=== PATIENT | male | born 1985 | race Caucasian/White ===

== ENCOUNTER 2018-03-29 13:18 | Emergency (ER) | payer OTHER, MEDICAID, SELFPAY ==
[2018-03-29 13:18] VITALS: BP 126/78; PULSE 88; RESP 20; TEMP 36.1; O2SAT 100; BMI 23.8
--- NOTE | 2018-03-29 14:06 | ED_ITS ---
HPI - Dental/Oral <Tracy Cabrera PA-C - Last Filed: 03/29/18 20:56> General Chief complaint: Dental/Oral Stated complaint: TOOTH INFECTION Time Seen by Provider: 03/29/18 14:22 Source: patient Mode of arrival: ambulatory Limitations: no limitations History of Present Illness HPI Narrative: this 32-year-old male comes in due to concern for dental infection. He states that he has a fractured right lower molar that has been inflamed for some time for his dentist from visit [facility]. He has a follow-up appointment in 3 weeks but is out of town, and for the last 2 days, he has had increased pain and swelling in the gums around his tooth that can radiate into the jaw. Tender with jaw movement and chewing. He is being careful to eats soft foods. He denies any sinus pain or earache. He has not had fever or upper respiratory symptoms. He states that he had some vomiting and is sitting taste in his mouth yesterday, has not had recurrent vomiting yesterday. He denies any other acute symptoms on systems review. Related Data Previous Rx's Medication Instructions Recorded amoxicillin-pot clavulanate 1 tab PO Q12H #14 tab 03/29/18 Allergies Allergy/AdvReac Type Severity Reaction Status Date / Time No Known Drug Allergies Allergy Verified 03/29/18 14:15 Review of Systems <Tracy Cabrera PA-C - Last Filed: 03/29/18 20:56> Review of Systems ROS Unobtainable: All systems reviewed & are unremarkable except as noted in HPI and below Exam <LANETTE Gonsalez Last Filed: 03/29/18 20:56> Narrative Exam Narrative: GENERAL APPEARANCE: Patient sitting comfortably, in no distress. HEAD: No sinus TTP. EYES: PERRL, EOMI. EARS: Normal auditory canals, TMS intact with normal light reflexes. ORAL CAVITY: Normal oropharynx. R. inferior molar repair present, partial tooth fracture. The gumline is mildly erythematous and edematous on the lingual and labial sides surrounding the tooth, tender to touch. No masses or drainage. THROAT: Clear. NECK/THYROID: Neck supple, full range of motion, few small anterior cervical nodes LUNGS: Clear to auscultation bilaterally HEART: RRR without murmur, nl S1, S2, no S3 or S4. Initial Vital Signs Initial Vital Signs: Vital Signs Temperature 96.9 F L 03/29/18 13:18 Pulse Rate 88 03/29/18 13:18 Respiratory Rate 20 03/29/18 13:18 Blood Pressure 126/78 03/29/18 13:18 Pulse Oximetry 100 03/29/18 13:18 <Shira Smith MD - Last Filed: 04/06/18 08:59> Initial Vital Signs Initial Vital Signs: Vital Signs Temperature 96.9 F L 03/29/18 13:18 Pulse Rate 88 03/29/18 13:18 Respiratory Rate 20 03/29/18 13:18 Blood Pressure 126/78 03/29/18 13:18 Pulse Oximetry 100 03/29/18 13:18 Course <Tracy Cabrera PA-C - Last Filed: 03/29/18 20:56> Vital Signs - 8 hr 03/29/18 13:18 Temperature 96.9 F L Pulse Rate 88 Respiratory Rate 20 Blood Pressure 126/78 Pulse Oximetry 100 <Shira Smith MD - Last Filed: 04/06/18 08:59> Vital Signs - 8 hr 03/29/18 13:18 Temperature 96.9 F L Pulse Rate 88 Respiratory Rate 20 Blood Pressure 126/78 Pulse Oximetry 100 Discharge Plan Departure Patient Disposition: Home Clinical Impression: Dental infection Discharge Date/Time: 03/29/18 14:52 Interventions: ED Discharge Assessment Last Done: 03/29/18 14:52 Instructions: DI for Dental Pain Activity Restrictions/Additional Instructions: Please start the anitbiotic today. Take ibuprofen [id number] 800 mg ( 4 tablet) every 8 hr to help with pain and inflammation. You can also get Orajel [id number] and applied around the affected tooth and gum area. You can add Tylenol as needed for pain in addition. Please see your dentist sooner or see one locally if not improving. Return if you have acutely worsening symptoms such as high fever not responding to OTC medicines, or severe swelling Prescriptions: New amoxicillin-pot clavulanate 875-125 mg tablet 1 tab PO Q12H Qty: 14 RF: 0 Referrals: [facility] [Other]
== END 2018-03-29 14:52 | disposition home or self-care (01) ==
PROVIDERS: Emergency Provider Internal Medicine
DX: K04.7 Periapical abscess without sinus (principal)
CPT/HCPCS: 99282

== ENCOUNTER 2019-08-11 15:32 | Emergency (ER) | payer BC, SELFPAY ==
[2019-08-11 15:40] VITALS: BP 140/90; PULSE 92; RESP 18; TEMP 36.8; O2SAT 98; BMI 24.4
--- NOTE | 2019-08-11 15:46 | DI.RAD.S_ITS ---
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 COMPARISON: None. FINDINGS: Bones: No acute fracture or dislocation is identified involving the left index finger. No suspicious osseous lesions are identified. Soft tissues: No suspicious soft tissue calcifications. No unexpected radiopaque foreign bodies are identified. IMPRESSION: No acute osseous abnormality of the left index finger. Dictated by: Marvin Juan M.D. on 08/11/2019 at 15:38 Approved by: Marvin Juan M.D. on 08/11/2019 at 15:44
[2019-08-11] MEDS: TET,DIPH,PERTUSS(ACELL),VAC/PF 0.5 ML SYRINGE IM (15:59)
[2019-08-11 17:34] VITALS: BP 110/66; PULSE 56; O2SAT 100
--- NOTE | 2019-08-11 18:10 | ED.WOUNDLAC ---
HPI - Wound/Laceration <JAXON Lipscomb - Last Filed: 08/11/19 18:19> General Chief Complaint: Wound/Laceration Stated Complaint: Cut/wound to index finger left hand Time Seen by Provider: 08/11/19 15:35 Source: patient Mode of arrival: Ambulatory Limitations: no limitations History of Present Illness HPI narrative: The patient is a 33-year-old nonsmoker with a chief complaint of a wound to his left index finger. 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 His laceration happened about 24 hours ago. He does not know when his last tetanus vaccination was. He states he has full range of motion of his left index finger. He held pressure after happened, wrapped in paper towels in duct tape. Did not wash it out. Related Data Previous Rx's Medication Instructions Recorded amoxicillin-pot clavulanate 1 tab PO Q12H #14 tab 03/29/18 Allergies Allergy/AdvReac Type Severity Reaction Status Date / Time No Known Drug Allergies Allergy Verified 03/29/18 14:15 Review of Systems <JAXON Lipscomb - Last Filed: 08/11/19 18:19> Review of Systems Narrative: GENERAL: Denies chills, fatigue, malaise, fever, sweats. HEENT: Denies sinus pain, ear pain, sore throat, difficulty swallowing, dizziness. RESPIRATORY: Denies dyspnea, cough, wheezing, hemoptysis, sputum. CARDIOVASCULAR: Denies chest pain, palpitations, orthopnea, edema, GASTROINTESTINAL: Denies nausea, vomiting, abdominal pain, diarrhea, constipation, melena. : Denies dysuria, frequency, incontinence, hematuria, urinary retention. MUSCULOSKELETAL: See HPI SKIN: See HPI NEUROLOGIC: Denies weakness, headache, numbness, change in speech, confusion, seizures, incoordination. PSYCHIATRIC: No concerning psychosocial issues. 12 point review of systems is negative except for those stated above Patient History <JAXON Lipscomb - Last Filed: 08/11/19 18:19> Medical History RLS (restless legs syndrome) (Chronic) Surgical History History of hand surgery (Resolved) History of meniscectomy of right knee (Resolved) Family History Other Family history non-contributory Social History Smoking Status: Never smoker additional social history: nonsmoker, rare EtOH, no street drugs Smoking Status: Never smoker Substance Use Type: does not use Exam <JAXON Lipscomb - Last Filed: 08/11/19 18:19> Narrative Exam Narrative: GENERAL: This is a well-nourished, well-developed patient, in no acute distress HEAD: Atraumatic. Normocephalic. No temporal or scalp tenderness. EYES: Pupils equal round and reactive. Extraocular motions intact. No scleral icterus. No injection or drainage. ENT: Nose without bleeding, purulent drainage or septal hematoma. Throat without erythema, tonsillar hypertrophy or exudate. Uvula midline. Airway patent. NECK: Trachea midline. No JVD or lymphadenopathy. Supple, nontender, no meningeal signs. CARDIOVASCULAR: Regular rate and rhythm RESPIRATORY: No cough. No increased respiratory effort. No accessory muscle use EXTREMITIES: Full range of motion noted left index finger. Capillary refill less than 2 seconds. BACK: Nontender without deformity or crepitance. No flank tenderness. NEURO: AOx3. SKIN: 1.5 cm laceration noted on palmar distal phalanx of left index finger. Macerated edges. Initial Vital Signs Initial Vital Signs: Vital Signs Temperature 98.2 F 08/11/19 15:40 Pulse Rate 92 H 08/11/19 15:40 Respiratory Rate 18 08/11/19 15:40 Blood Pressure 140/90 08/11/19 15:40 Pulse Oximetry 98 08/11/19 15:40 <Ted Jimenez MD - Last Filed: 08/12/19 07:57> Initial Vital Signs Initial Vital Signs: Vital Signs Temperature 98.2 F 08/11/19 15:40 Pulse Rate 92 H 08/11/19 15:40 Respiratory Rate 18 08/11/19 15:40 Blood Pressure 140/90 08/11/19 15:40 Pulse Oximetry 98 08/11/19 15:40 Procedures <JAXON Lipscomb - Last Filed: 08/11/19 18:19> Laceration Repair Laceration 1: Site: hand Side (If applicable): left Size (cm): 1.5 Description: linear Depth: simple, single layer Pre-repair: wound explored, irrigated extensively (iodine) and deep structures intact Skin layer closed with: steri-strips Scores <JAXON Lipscomb - Last Filed: 08/11/19 18:19> GCS Alex coma scale eye opening: Spontaneous Alex coma scale verbal response: Orientated Alex coma scale motor response: Obey commands [place] coma scale total score: 15 Course <JAXON Lipscomb - Last Filed: 08/11/19 18:19> Orders Ordered: Discontinued Medications Diphtheria/Tetanus/Acell Pertussis (Adacel) 0.5 ml IM .ONCE ONE Stop: 08/11/19 15:47 Last Admin: 08/11/19 15:59 Dose: 0.5 ml Documented by: BEN Vital Signs Vital signs: Vital Signs - 8 hr 08/11/19 15:40 08/11/19 17:34 Temperature 98.2 F Pulse Rate 92 H 56 L Respiratory Rate 18 Blood Pressure 140/90 Blood Pressure [Right Arm] 110/66 Pulse Oximetry 98 100 <Ted Jimenez MD - Last Filed: 08/12/19 07:57> Orders Ordered: Discontinued Medications Diphtheria/Tetanus/Acell Pertussis (Adacel) 0.5 ml IM .ONCE ONE Stop: 08/11/19 15:47 Last Admin: 08/11/19 15:59 Dose: 0.5 ml Documented by: BEN Vital Signs Vital signs: Vital Signs - 8 hr 08/11/19 15:40 08/11/19 17:34 Temperature 98.2 F Pulse Rate 92 H 56 L Respiratory Rate 18 Blood Pressure 140/90 Blood Pressure [Right Arm] 110/66 Pulse Oximetry 98 100 MDM - Wound/Laceration <JAXON Lipscomb - Last Filed: 08/11/19 18:19> Imaging Data Extremity x-ray #1: Radiologist's Impression: [facility] [address] [place] [id number] XRay Report Signed Patient: Eusebio Vanessa TMR#: [id number] : 1985Acct:[id number] Age/Sex: 33 / MDate of Service: 08/11/19 Loc: ED Accession Number: [id number] Procedure: XR finger LT min 2V Ordering Provider: Josey Syed PROCEDURE: XR FINGER LT MIN 2V 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 COMPARISON: None. FINDINGS: Bones: No acute fracture or dislocation is identified involving the left index finger. No suspicious osseous lesions are identified. Soft tissues: No suspicious soft tissue calcifications. No unexpected radiopaque foreign bodies are identified. IMPRESSION: No acute osseous abnormality of the left index finger. Dictated by: Marivn Juan M.D. on 08/11/2019 at 15:38 Approved by: Marvin Juan M.D. on 08/11/2019 at 15:44 MDM Narrative Medical decision making narrative: The patient is a 33 year male who presents with a chief complaint of laceration. His tetanus was updated. He has no obvious fracture or foreign body. His wound is too old to close by suture, especially given the macerated edges. I was cleansed copiously throughout stay in the emergency department. I closed it with Steri-Strips, discussed at length monitoring for signs and symptoms of infection such as redness purulence etcetera. Patient have no questions or concerns upon discharge and state understanding return precautions as well as follow-up care. Discharge Plan Departure Patient Disposition: Home Clinical Impression: Laceration Discharge Date/Time: 08/11/19 17:51 Instructions: How to Care for a Laceration After Repair, DI for Laceration Repair, DI for Laceration Repair Steri-Strips Activity Restrictions/Additional Instructions: Thank you for trusting us with your care today Today we Steri-Strips your laceration as it is too old to suture We also updated her your tetanus As I discussed, your x-ray shows no acute fracture. This does not rule out a soft tissue injury such as a ligament or tendon injury. It is important that you follow up with primary care provider, especially if worsening or no improvement. There can be fractures that did not show up on initial x-ray. I have given you a work note to rest your hand for the next week Please do not submerge your hand into dirty water as this can increase your chance of infection. Please come back to the emergency department for any acute concerns. I have given you contact information at [facility] human resources project coordinator who can help you identify a primary care provider Prescriptions: No Action amoxicillin-pot clavulanate 875-125 mg tablet 1 tab PO Q12H Qty: 14 RF: 0 Referrals: [facility] [Outside] Stand Alone Forms: Work Release Note <Ted Jimenez MD - Last Filed: 08/12/19 07:57> [facility] Ronald Attestation: I was immediately available in the department for consultation. This documentation has been reviewed and I agree with assessment and plan. Supervised by Ted Jimenez MD
== END 2019-08-11 17:51 | disposition home or self-care (01) ==
PROVIDERS: Emergency Provider Nurse Practitioner Family
DX: S61.211A Laceration without foreign body of left index finger without damage to nail, initial encounter (principal); W27.8XXA Contact with other nonpowered hand tool, initial encounter; Z23 Encounter for immunization
CPT/HCPCS: 73140; 90471; 99283; 90715

== ENCOUNTER → 2020-05-14 12:15 | Outpatient (CLI) | payer OTHER, SELFPAY ==
[2020-05-14] MEDS: COVID-19 VACC, Ad26(JANSSEN)/PF 0.5 ML IM (12:24)
== END ==
PROVIDERS: Visit Provider Internal Medicine
DX: Z23 Encounter for immunization (principal)
CPT/HCPCS: 0031A; 91303

== ENCOUNTER 2022-03-03 11:35 | Emergency (ER) | payer OTHER, SELFPAY ==
[2022-03-03 11:45] VITALS: BP 128/83; PULSE 86; RESP 15; TEMP 36.3; O2SAT 99; BMI 23.1
--- NOTE | 2022-03-03 11:47 | DI.RAD.S_ITS ---
PROCEDURE: XR HAND RT MIN 3V INDICATIONS: punched a wall TECHNIQUE: 3 views of the hand(s) acquired. COMPARISON: [facility], , HAND 3V RIGHT, 08/27/2015, 11:12. FINDINGS: Bones: There is a comminuted distal 5th metacarpal fracture. No intra-articular extension. Soft tissues: No suspicious soft tissue calcifications. IMPRESSION: Right boxer's fracture. Dictated by: Alice Hernández M.D. on 03/03/2022 at 12:23 Approved by: Alice Hernández M.D. on 03/03/2022 at 12:25
--- NOTE | 2022-03-03 15:38 | ED_ITS ---
HPI - Extremity Injury (Upper) <ITALIA Lane - Last Filed: 03/03/22 16:49> General Chief Complaint: Extremity Injury, Upper Stated Complaint: Rt hand injury Time Seen by Provider: 03/03/22 15:14 Source: patient Mode of arrival: Ambulatory History of Present Illness HPI narrative: This is a 36-year-old male who presents to the emergency department with a right hand injury that he sustained 6 days ago after he hit a wall. He complains of pain in the 5th metacarpal, states that he has a history of a right 5th digit tendon injury and is unable to flex his 5th digit at baseline and denies any new range of motion deficit or abnormalities. Denies any numbness or tingling, denies any open wound, states that he is had multiple broken bones in the past, he is right-hand dominant. He states that his pain has gotten worse. He did not take any pain medication today, has been treating with ibuprofen and Tylenol. States that this is adequate for his pain. Related Data Previous Rx's Medication Instructions Recorded amoxicillin 875 mg-potassium 1 tab PO Q12H dental infection #14 03/29/18 clavulanate 125 mg tablet tabs Allergies Allergy/AdvReac Type Severity Reaction Status Date / Time No Known Drug Allergies Allergy Verified 03/03/22 11:44 Review of Systems <ITALIA Lane - Last Filed: 03/03/22 16:49> Review of Systems ROS Unobtainable: All systems reviewed & are unremarkable except as noted in HPI and below Patient History <ITALIA Lane - Last Filed: 03/03/22 16:49> Medical History (Updated 03/03/22 @ 15:[address]) RLS (restless legs syndrome) Surgical History History of hand surgery History of meniscectomy of right knee Family History Other Family history non-contributory Social History Smoking Status: Current every day smoker additional social history: nonsmoker, rare EtOH, no street drugs Smoking Status: Current every day smoker tobacco type: vaping alcohol intake frequency: holidays/special occasions only Substance Use Type: marijuana Exam <ITALIA Lane - Last Filed: 03/03/22 16:49> Initial Vital Signs Initial Vital Signs: Vital Signs Temperature 97.3 F L 03/03/22 11:45 Pulse Rate 86 03/03/22 11:45 Respiratory Rate 15 03/03/22 11:45 Blood Pressure 128/83 03/03/22 11:45 Pulse Oximetry 99 03/03/22 11:45 Oxygen Delivery Method 03/03/22 11:45 <Lizzeth Cano DO - Last Filed: 03/06/22 07:48> Initial Vital Signs Initial Vital Signs: Vital Signs Temperature 97.3 F L 03/03/22 11:45 Pulse Rate 86 03/03/22 11:45 Respiratory Rate 15 03/03/22 11:45 Blood Pressure 128/83 03/03/22 11:45 Pulse Oximetry 99 03/03/22 11:45 Oxygen Delivery Method 03/03/22 11:45 Procedures <ITALIA Lane - Last Filed: 03/03/22 16:49> Orthopedic Splinting/Casting Injury #1: Side: right Upper Extremity Injury Location: wrist and hand Upper Extremity Immobilizer: sling/shoulder immobilizer Post splinting neuro exam: intact Post splinting vascular exam: no change Placed by: Provider Additional Comments: Patient splinted in a ulnar gutter splint with 4 in Orthoglass, copious padding, and patient tolerated well. CMS intact distally after placement, patient given sling for support. Full sensation without any abnormalities afterwards. I splinted by myself without other support, patient was examined in the waiting room, brought back to hallway bed for splinting and discharged after splinting complete Course <ITALIA Lane - Last Filed: 03/03/22 16:49> Orders Ordered: ED Orders 03/03/22 11:47 XR hand RT min 3V Stat Vital Signs Vital signs: Vital Signs - 8 hr 03/03/22 11:45 03/03/22 15:58 Temperature 97.3 F L Pulse Rate 86 72 Respiratory Rate 15 18 Blood Pressure 128/83 Pulse Oximetry 99 98 Oxygen Delivery Method Room Air Room Air <Lizzeth Cano DO - Last Filed: 03/06/22 07:48> Orders Ordered: ED Orders 03/03/22 11:47 XR hand RT min 3V Stat Vital Signs Vital signs: Vital Signs - 8 hr 03/03/22 11:45 03/03/22 15:58 Temperature 97.3 F L Pulse Rate 86 72 Respiratory Rate 15 18 Blood Pressure 128/83 Pulse Oximetry 99 98 Oxygen Delivery Method Room Air Room Air MDM - Extremity Injury (Upper) <ITALIA Lane - Last Filed: 03/03/22 16:49> Imaging Data Extremity x-ray #1: Radiologist's Impression: PROCEDURE:? XR HAND RT MIN 3V ? INDICATIONS:? punched a wall ? TECHNIQUE:? 3 views of the hand(s) acquired.? ? COMPARISON:? [facility], , HAND 3V RIGHT, 08/27/2015, 11:12. ? FINDINGS:? ? Bones:? There is a comminuted distal 5th metacarpal fracture.? No intra- articular extension. ? Soft tissues:? No suspicious soft tissue calcifications.? ? ? IMPRESSION:? Right boxer's fracture. ? ? Dictated by: Alice Hernández M.D. on 03/03/2022 at 12:23 ? ? Approved by: Alice Hernández M.D. on 03/03/2022 at 12:25 ? [facility] Narrative Medical decision making narrative: This is a 36-year-old male presents to the emergency department 6 days after he punched a wall with his right hand which is dominant sustaining a right sided boxer's fracture of his 5th metacarpal at the distal aspect. He is neurovascularly intact without an open wound, came in for ongoing pain and states that he thought it was broken. Has a history of a 5th digit tendon repair with abnormal range of motion at baseline. He is not have any new sensation deficit or range of motion deficit, only pain with ecchymosis to his right hand. Patient splinted and he tolerated well, CMS intact distally afterwards. He will follow-up at [facility], states that Dr. Botello completed his tendon repair and that is who was on-call today, given contact information to follow-up. Patient's fracture is volar angulated but has been this way for the last 6 days, I attempted to improve the line up but patient did not tolerate due to pain and there was no nursing available to give pain medication. Patient is appropriate and amenable to discharge home. Vital signs are stable on repeat examination is unremarkable. Patient has been informed of results. Patient has been given strict return to ER precautions for any new or worsening symptoms. Patient understands to follow up closely with outpatient providers as instructed. Patient understands plan and agrees to discharge home. All questions and concerns answered at this time. Discharge Plan Departure Patient Disposition: Home Clinical Impression: Closed fracture of 5th metacarpal Qualifiers: Encounter type: initial encounter Metacarpal location: unspecified portion of metacarpal Fracture alignment: displaced Laterality: right Qualified Code(s): S62.306A - Unspecified fracture of fifth metacarpal bone, right hand, initial encounter for closed fracture Instructions: Boxer's Fracture Activity Restrictions/Additional Instructions: *You have been diagnosed with a right boxer's fracture 6 days ago. Please call [facility] and make an appointment for follow-up. Please use a sling to continue elevating, take ibuprofen 800 mg every 8 hours with food and water, take Tylenol 650 mg every 6 hours with this for improve pain control. Please ice it, elevate it and avoid overuse. Please do not get your splint wet, please come back if her splint is causing pain, numbness or tingling or becoming more painful. *What to do: *Please continue to take your regular medications as directed. [ ] New medication prescriptions sent to your pharmacy: [ ] [ ] New medication written as a paper prescription [x ] No new medications given *Please follow up with your primary care provider in 2-3 days, call for an appointment. Let them know you were seen in the Emergency Department and that we asked that you be seen for follow-up. We will electronically transmit a record of today's note if your PCP is in our system *If you do not have a primary care provider please contact [phone] to establish care with one of the [facility] primary care providers. *Return to Emergency Department if you should have any new, worsening, or concerning symptoms, such as [fever greater than 101F, chills, worsening pain, persistent vomiting or other bothersome symptoms]. Prescriptions: No Action amoxicillin-pot clavulanate 875-125 mg tablet 1 tab PO Q12H Qty: 14 0RF Referrals: [facility] [Provider Group] Manjeet Botello MD [Physician] - Stand Alone Forms: Patient Portal/API <Lizzeth Cano DO - Last Filed: 03/06/22 07:48> Cosign ED Attending Cosignature Attestation: I was immediately available in the department for consultation. Documentation has been reviewed. I agree with assessment and plan.
[2022-03-03 15:58] VITALS: PULSE 72; RESP 18; O2SAT 98
--- NOTE | 2022-03-03 15:59 | PC.NURSE ---
Seen, evaluated and d/c by provider.
== END 2022-03-03 16:00 | disposition home or self-care (01) ==
PROVIDERS: Emergency Provider Nurse Practitioner Critical Care Medicine
DX: S62.306A Unspecified fracture of fifth metacarpal bone, right hand, initial encounter for closed fracture (principal); W22.8XXA Striking against or struck by other objects, initial encounter
CPT/HCPCS: 73130; 99282; 99283

== ENCOUNTER 2022-05-24 07:30 | Outpatient (RCR) | payer OTHER, SELFPAY ==
--- NOTE | 2022-05-10 15:30 | OT.OP.EVAL ---
Visit Care Team Role Provider Type Kristie Sloan MD Attending Provider Non-Staff Primary Care Provider Referring Provider Specialty: Orthopedic Surgery Address: [address] [place] [address], [place], [address] Email: Occupational Therapy Initial Evaluation OT Outpatient Adult Evaluation Start: 05/11/22 11:39 Freq: Status: Active Protocol: Document 05/10/22 15:30 AMS (Rec: 05/11/22 11:59 AMS [id number]) General Information - Adult Plan of Care Dates 05/10/22 - 07/05/22 Insurance Information [employer] Preferred Visit Start Time 07:30 Visit Stop Time 08:10 Total Visit Minutes 40 Treatment Setting Outpatient Care Note Type Initial Evaluation Identification Confirmed Yes Identification Confirmed By Self Assessment/Plan Treatment Assessment Patient is a 36 year-old right hand dominant male referred to outpatient OT secondary to closed reduction, percutaneous fixation R 5th metacarpal fracture w/ significant angulation. Chinedu presented to evaluation w/ R hand based splint w/ instruction to work on passive and active range of motion w/ lifting no more than 2 to 3# weight restriction; he has already been instructed on formation of hook fist, formation of tight fist w/ hold for range of motion. 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 Did discuss use of incline surface to decrease pressure/force on ulnar side of hand w/ written task completion. 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 He wears the hand splint in busier environments and at night time as instructed. -15 degrees ext noted at R 5th PIPJ and - 20 degrees ext at R 5th DIPJ; he demonstrates 30 degrees active flex at R DIPJ. Hyperextension was noted in PIPJ of 2 thru 4 of R hand. Patient has h/o other significant injuries to the R hand, including tendon repair of the R 5th digit in 2016. Patient indicated 2 out of 10 on Pain Assessment Grid relative to the R hand; he reports mostly tension when forming tight fist and some rotation of the 5th digit when forming a fist. Patient denied any restrictions in shoulder or elbow given frequent resting of hand/ forearm on top of head for swelling management. He does have some wrist stiffness likely d/t longer arm splint. Discussed range of motion exercises for wrist w/ use of wall. He has a follow-up appointment w/ surgeon on May 19. Outpatient OT is recommended to address weakness, stiffness, range of motion, and functional weight bearing, to support Eusebio's ability to successfully engage in meaningful activities in a variety of environments w/ active utilization of dominant right hand per healing guidelines/as surgeon directed . Recommend that appointments be scheduled post- 05/19/22 appointment w/ surgeon at [facility]. Length of treatment (weeks) 8 Plan of Care Start Date 05/10/22 Plan of Care End Date 07/05/22 Comment 1-2 times per week Therapeutic Contents Active Range of Motion, Adaptive Equipment Education, Client Education,Cognitive Skills Development,Functional Activities,Home Exercise Program,Joint Protection, Manual Therapy,Education, Neurodevelopment Treatment, Neuromuscular Re-Education, Self-Care,Stretching/ Flexibility Activities, Therapeutic Activities, Therapeutic Exercises, Modalities Modalities As Needed,As Prescribed Additional Types of Modalities Heat/Ice/Paraffin/Ultrasound/E -stim
--- NOTE | 2022-05-24 11:58 | OT.OP.TRT ---
Visit Care Team Role Provider Type Kristie Sloan MD Attending Provider Non-Staff Primary Care Provider Referring Provider Specialty: Orthopedic Surgery Address: [address] [place] [address], [place], [address] Email: Occupational Therapy Treatment Note OT Outpatient Treatment Note - Adult Start: 05/11/22 11:39 Freq: Status: Active Protocol: Document 05/24/22 11:51 AMS (Rec: 05/24/22 11:58 AMS [id number]) OT Outpatient Adult Treatment Note Session Time Visit Start Time 07:30 Visit Stop Time 08:00 Total Visit Minutes 30 Visit Information Plan of Care Dates 05/10/22 - 07/05/22 Setting Treatment Setting Outpatient Care Visit Type Note Type Treatment Note General Information General Information Patient is a 36 year-old right hand dominant male referred to outpatient OT secondary to closed reduction, percutaneous fixation R 5th metacarpal fracture w/ significant angulation. - Subjective Identification Type Name Identification Reconciled With Medical Record Observations Chinedu reported that weight lifting restrictions has increased to 5#; follow-up appt with surgeon to be June 16. 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 Patient/Caregiver Compliance with Home Excellent Exercise Program - Objective Vp Hr Diversity Goals 1. Patient will be modified independent with home exercise program utilizing provided written and visual instructions from therapist. 2. Patient will report ability to engage in and complete work related tasks without limitations with active utilization of the dominant hand utilizing modifications as needed. - - Assessment Assessment of Improvement Patient's weight lifting restrictions has increased to 5# of resistance. Provided medium firm green theraputty for home use; instructed in care of putty. Also instructed in single rubberband strengthening. Recommended focus on strengthening of 5th digit extension. Discussed functional neuro re-education relative to web coordinator w/ active incorporation of the right fifth digit with various grasps. Chinedu denied questions re: home recommendations. Discussed follow-up treatment options; recommend follow-up post June 16 appointment w/ surgeon. Outpatient OT is recommended to address weakness, stiffness , range of motion, and functional weight bearing, to support Eusebio's ability to successfully engage in meaningful activities in a variety of environments w/ active utilization of dominant right hand per healing guidelines/as surgeon directed . - Plan Therapy Recommendations Continue with Current Program, Advance per Rehabilitation Protocol
--- NOTE | 2022-07-07 12:19 | OT.OP.DC ---
Visit Care Team Role Provider Type Kristie Sloan MD Attending Provider Non-Staff Primary Care Provider Referring Provider Address: [address] [place] [address], [place], [address] Email: OT Outpatient OT Outpatient Adult Evaluation Start: 05/11/22 11:39 Freq: Status: Active Protocol: Document 05/10/22 15:30 AMS (Rec: 05/11/22 11:59 AMS [id number]) General Information - Adult Visit Information Plan of Care Dates 05/10/22 - 07/05/22 Insurance Information [employer] Preferred Session Time Visit Start Time 07:30 Visit Stop Time 08:10 Total Visit Minutes 40 Setting Treatment Setting Outpatient Care Visit Type Note Type Initial Evaluation Identification Identification Confirmed Yes Identification Confirmed By Self Assessment/Plan Assessment Treatment Assessment Patient is a 36 year-old right hand dominant male referred to outpatient OT secondary to closed reduction, percutaneous fixation R 5th metacarpal fracture w/ significant angulation. Chinedu presented to evaluation w/ R hand based splint w/ instruction to work on passive and active range of motion w/ lifting no more than 2 to 3# weight restriction; he has already been instructed on formation of hook fist, formation of tight fist w/ hold for range of motion. 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 Did discuss use of incline surface to decrease pressure/force on ulnar side of hand w/ written task completion. 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 He wears the hand splint in busier environments and at night time as instructed. -15 degrees ext noted at R 5th PIPJ and - 20 degrees ext at R 5th DIPJ; he demonstrates 30 degrees active flex at R DIPJ. Hyperextension was noted in PIPJ of 2 thru 4 of R hand. Patient has h/o other significant injuries to the R hand, including tendon repair of the R 5th digit in 2016. Patient indicated 2 out of 10 on Pain Assessment Grid relative to the R hand; he reports mostly tension when forming tight fist and some rotation of the 5th digit when forming a fist. Patient denied any restrictions in shoulder or elbow given frequent resting of hand/ forearm on top of head for swelling management. He does have some wrist stiffness likely d/t longer arm splint. Discussed range of motion exercises for wrist w/ use of wall. He has a follow-up appointment w/ surgeon on May 19. Outpatient OT is recommended to address weakness, stiffness, range of motion, and functional weight bearing, to support Eusebio's ability to successfully engage in meaningful activities in a variety of environments w/ active utilization of dominant right hand per healing guidelines/as surgeon directed . Recommend that appointments be scheduled post- 05/19/22 appointment w/ surgeon at [facility]. Plan Length of treatment (weeks) 8 Plan of Care Start Date 05/10/22 Plan of Care End Date 07/05/22 Comment 1-2 times per week Therapeutic Contents Active Range of Motion, Adaptive Equipment Education, Client Education,Cognitive Skills Development,Functional Activities,Home Exercise Program,Joint Protection, Manual Therapy,Education, Neurodevelopment Treatment, Neuromuscular Re-Education, Self-Care,Stretching/ Flexibility Activities, Therapeutic Activities, Therapeutic Exercises, Modalities Modalities As Needed,As Prescribed Additional Types of Modalities Heat/Ice/Paraffin/Ultrasound/E -stim Functional Wrist/Hand Scan Hand Side Sensory Assessment Sensory Profile2 OT Outpatient Treatment Note - Adult Start: 05/11/22 11:39 Freq: Status: Active Protocol: Document 07/07/22 12:17 [facility] (Rec: 07/07/22 12:18 [facility] [id number]) OT Outpatient Adult Treatment Note Visit Information Plan of Care Dates 05/10/22 - 07/05/22 Setting Treatment Setting Outpatient Care Visit Type Note Type Discharge Summary - Subjective Observations Patient has not been seen in the outpatient setting since and POC on ; recommend d/c from outpatient OT services at this time. - Objective Short Term Goals ALL GOALS D/C 07/07/22 Jail Goals ALL GOALS D/C 07/07/22 - - Assessment Assessment of Improvement Patient has not been seen in the outpatient setting since and POC on ; recommend d/c from outpatient OT services at this time. - Plan Therapy Recommendations Discharge from Occupational Therapy
== END 2022-07-08 11:33 | disposition home or self-care (01) ==
LOC: OT 07:30
PROVIDERS: PCP Orthopaedic Surgery; Referring Provider Orthopaedic Surgery; Visit Provider Orthopaedic Surgery
DX: S62.306A Unspecified fracture of fifth metacarpal bone, right hand, initial encounter for closed fracture (principal); R53.1 Weakness
CPT/HCPCS: 97110; 97165

== ENCOUNTER 2023-04-24 17:34 | Emergency (ER) | payer OTHER, SELFPAY ==
[2023-04-24] VITALS (11 sets, daily range): BP systolic 123–145; BP diastolic 78–95; PULSE 62–87; RESP 13–29; TEMP 37.2; O2SAT 94–100; BMI 24.3
--- NOTE | 2023-04-24 18:05 | ED.GIBLEED ---
HPI - GI Bleed General Chief complaint: GI Bleed Stated complaint: NVD T-4 Time Seen by Provider: 04/24/23 17:48 Source: patient Mode of arrival: Ambulatory History of Present Illness HPI Narrative: 37-year-old male with history of chronic back pain and arthritis presents by private vehicle from home for 4 days persistent nausea and vomiting. Patient states that over the last 4 days he has not been able to keep anything down including liquids. He decided to present today because his emesis seems to have brownish red flecks in it and he was concerned that there may be blood. Reports brief episodes of generalized abdominal pain just prior to his episodes of emesis, but currently pain-free. Denies history of abdominal surgeries. Denies new restraints foods, denies sick contacts. Patient states that he does smoke cannabis daily for his chronic back pain. Denies alcohol use or regular NSAID or aspirin use. Related Data Previous Rx's Medication Instructions Recorded amoxicillin 875 mg-potassium 1 tab PO Q12H dental infection #14 03/29/18 clavulanate 125 mg tablet tabs ondansetron 4 mg disintegrating 4 mg PO Q8H PRN nausea and 04/24/23 tablet vomiting #30 tabs promethazine 25 mg tablet 25 mg PO Q6H PRN nausea and 04/24/23 vomiting #14 tabs Allergies Allergy/AdvReac Type Severity Reaction Status Date / Time No Known Drug Allergies Allergy Verified 03/03/22 11:44 Review of Systems Review of Systems Narrative: Negative except as noted above Patient History Medical History RLS (restless legs syndrome) Surgical History History of meniscectomy of right knee History of hand surgery Family History Other Family history non-contributory Social History Smoking Status: Former smoker additional social history: nonsmoker, rare EtOH, no street drugs Smoking Status: Former smoker tobacco type: vaping alcohol intake frequency: holidays/special occasions only Substance Use Type: marijuana Exam Initial Vital Signs Initial Vital Signs: Vital Signs Temperature 98.9 F 04/24/23 17:41 Pulse Rate 87 04/24/23 17:41 Respiratory Rate 20 04/24/23 17:41 Blood Pressure 135/95 H 04/24/23 17:41 Pulse Oximetry 97 04/24/23 17:41 Oxygen Delivery Method Room Air 04/24/23 17:41 Const: Awake, alert, no acute distress, nontoxic appearing Cardiac: regular rate, regular rhythm RESP: unlabored, clear bilaterally, no wheezing GI: Atraumatic, soft, nontender, nondistended MSK: Atraumatic, full range of motion, pulses equal Skin: Warm, Dry, intact, no rashes Neuro: AO x3, CN II-XII grossly intact, moves all extremities Psych: affect normal, mood normal, not suicidal, not homicidal Course Orders Ordered: ED Orders 04/24/23 17:46 Consult to TURPENTINE DISTILLER - Chief Order Dispatcher Stat 04/24/23 17:55 Complete Blood Count AUTO DIFF Stat Comprehensive Metabolic Panel Stat PTT Partial Thromboplastin Derrell Stat Prothrombin Time INR Stat Type and Screen Stat 04/24/23 18:31 CT abdomen pelvis w con Stat Discontinued Medications Droperidol (Droperidol 5 Mg/2 Ml Vial) 2.5 mg IV NOW ONE Stop: 04/24/23 18:31 Last Admin: 04/24/23 18:44 Dose: 2.5 mg Documented By: ABILIO Ondansetron HCl (Ondansetron 4 Mg/2 Ml Inj) 4 mg IV NOW PRN PRN Reason: Nausea And Vomiting Last Admin: 04/24/23 18:08 Dose: 4 mg Documented By: ABILIO Ondansetron HCl (Ondansetron 4 Mg Odt) 4 mg SL NOW PRN PRN Reason: Nausea And Vomiting Ondansetron HCl (Ondansetron 4 Mg Odt Prepack) 1 bottle MISC DIRECTED ONE Stop: 04/24/23 20:52 Last Admin: 04/24/23 21:00 Dose: 1 bottle Documented By: ABILIO Pantoprazole Sodium (Pantoprazole 40 Mg Vial) 80 mg IV NOW ONE Stop: 04/24/23 17:48 Last Admin: 04/24/23 18:08 Dose: 80 mg Documented By: ABILIO Vital Signs Vital signs: Vital Signs - 8 hr 04/24/23 17:41 04/24/23 17:49 04/24/23 17:50 Temperature 98.9 F Pulse Rate 87 80 74 Respiratory Rate 20 Blood Pressure 135/95 H Pulse Oximetry 97 100 100 Oxygen Delivery Method Room Air 04/24/23 17:50 04/24/23 18:00 04/24/23 18:00 Temperature Pulse Rate 74 Respiratory Rate 13 Blood Pressure 123/81 139/79 Pulse Oximetry 96 Oxygen Delivery Method 04/24/23 18:30 04/24/23 18:31 04/24/23 18:31 Temperature Pulse Rate 72 71 Respiratory Rate 29 H 25 H Blood Pressure 131/78 Pulse Oximetry 97 96 Oxygen Delivery Method 04/24/23 19:05 04/24/23 19:06 04/24/23 19:06 Temperature Pulse Rate 67 68 Respiratory Rate 22 15 Blood Pressure 145/83 H Pulse Oximetry 95 97 Oxygen Delivery Method 04/24/23 19:30 04/24/23 19:30 04/24/23 20:00 Temperature Pulse Rate 70 Respiratory Rate 18 Blood Pressure 141/79 H 124/78 Pulse Oximetry 98 Oxygen Delivery Method 04/24/23 20:00 04/24/23 20:30 04/24/23 20:30 Temperature Pulse Rate 62 64 Respiratory Rate 21 19 Blood Pressure 128/82 Pulse Oximetry 94 94 Oxygen Delivery Method MDM - GI Bleed Differential Diagnosis Differential diagnosis: Likely hemorrhoids, infectious diarrhea and esophageal varices Lab Data 04/24/23 17:55 04/24/23 17:55 Labs: Lab Results 04/24/23 Range/Units 17:55 WBC 14.2 H (4.5-11.0) X10^3/uL RBC 5.07 (4.5-5.9) X10^6/uL Hgb 15.2 (13.5-17.5) g/dL Hct 44.1 (41-53) % MCV 87.0 (80-100) fL MCH 29.9 (26-34) PG MCHC 34.4 (30-36) % RDW 13.2 (11.6-14.8) % Plt Count 230 (150-400) X10^3/uL Neut % (Auto) 82.4 H (50-75) % Lymph % (Auto) 6.7 L (25-40) % [place] % (Auto) 9.2 (3-14) % Eos % (Auto) 1.2 L (2-4) % Baso % (Auto) 0.5 (0-2) % Neut # (Auto) 99979 H (3308-7612) /uL Lymph # (Auto) 1000 L (8248-9060) /uL [place] # (Auto) 1300 H (0-900) /uL Eos # (Auto) 200 (0-450) /uL Baso # (Auto) 100 (0-100) /uL PT 13.3 H (9.4-12.5) SECONDS INR 1.2 (0.9-1.3) APTT 34 (25.1-36.5) SECONDS Sodium 137 (137-145) mmol/L Potassium 3.5 (3.4-5.1) mmol/L Chloride 99 (98-107) mmol/L Carbon Dioxide 26 (22-32) mmol/L BUN 17 (9-20) mg/dL Creatinine 1.01 (0.66-1.25) mg/dL Estimated GFR > 60 (>60) mL/min BUN/Creatinine Ratio 16.8 (6-22) Glucose 152 H (70-100) mg/dL Calcium 9.7 (8.4-10.2) mg/dL Total Bilirubin 1.7 H (0.2-1.3) mg/dL AST 22 (17-59) IU/L ALT 14 (<50) IU/L Alkaline Phosphatase 57 (38-126) U/L Total Protein 8.3 H (6.3-8.2) g/dL Albumin 4.6 (3.5-5.0) g/dL Globulin 3.7 (1.7-4.1) g/dL Albumin/Globulin Ratio 1.2 (1.0-2.8) Blood Type A Positive Antibody Screen Negative [facility] Narrative Medical decision making narrative: Well-appearing patient with 4 days of symptoms. Patient does not appear to be clinically dehydrated on exam despite reporting 4 days of no p.o. intake. Abdomen is soft with no reproducible tenderness to palpation. Patient vomited despite receiving Zofran. Laboratory work is pending. We will order CT scan of the abdomen and pelvis with contrast and add droperidol for nausea and vomiting. Laboratory work is reviewed, patient has mild leukocytosis, which would be expected after several days of vomiting. Hemoglobin is 15, sodium 137, potassium 3.5, creatinine 1.01. CT imaging of the abdomen and pelvis is negative for acute findings. There was incidental note made of atelectasis versus pneumonia in the left-hand side, however patient has no respiratory complaints and this is likely atelectasis. Patient was able to tolerate fluids after droperidol. Question if patient has vomiting related to cannabis use. Antinausea medication sent to pharmacy. ED return precautions discussed at bedside. Patient expressed understanding of the plan and is in agreement at this time. All questions answered at the time of discharge. Discharge Plan Departure Patient Disposition: Home Clinical Impression: Vomiting Qualifiers: Vomiting type: unspecified Nausea presence: with nausea Qualified Code(s): R11.2 - Nausea with vomiting, unspecified Instructions: DI for Vomiting -- Adult Activity Restrictions/Additional Instructions: Your laboratory work and CT imaging were normal today. Two different nausea medications have been sent to the [facility]'s in [place]. Zofran is 1st line, if that does not work you can try the promethazine. Stick to a bland diet for the next several days to allow your stomach to recover. Prescriptions: New ondansetron 4 mg tablet,disintegrating 4 mg PO Q8H PRN (Reason: nausea and vomiting) Qty: 30 0RF promethazine 25 mg tablet 25 mg PO Q6H PRN (Reason: nausea and vomiting) Qty: 14 0RF No Action amoxicillin-pot clavulanate 875-125 mg tablet 1 tab PO Q12H Qty: 14 0RF Referrals: Kristie Sloan MD [Primary Care Provider] - Stand Alone Forms: Patient Portal/API
[2023-04-24] MEDS: PANTOPRAZOLE 40 MG VIAL 80 MG IV (18:08)
[2023-04-24] MEDS: ONDANSETRON 4 MG/2 ML INJ IV (18:08)
[2023-04-24 18:10] LABS: INR 1.2 (0.9-1.3); Prothrombin Time 13.3 SECONDS (9.4-12.5)
[2023-04-24 18:12] LABS: Add Manual Diff / Slide Review NO; Basophils Absolute Auto 100 /uL (0-100); Basophils Percent Auto 0.5 % (0-2); Eosinophils Absolute Auto 200 /uL (0-450); Eosinophils Percent Auto 1.2 % (2-4); Hematocrit 44.1 % (41-53); Hemoglobin 15.2 g/dL (13.5-17.5); Lymphocytes Absolute Auto 1000 /uL (1100-4500); Lymphocytes Percent Auto 6.7 % (25-40); Mean Corpuscular HGB Conc 34.4 % (30-36); Mean Corpuscular Hemoglobin 29.9 PG (26-34); Monocytes Absolute Auto 1300 /uL (0-900); Monocytes Percent Auto 9.2 % (3-14); Neutrophils Absolute Auto 11700 /uL (1500-7000); Neutrophils Percent Auto 82.4 % (50-75); Platelet Count 230 X10^3/uL (150-400); Red Blood Cell Count 5.07 X10^6/uL (4.5-5.9); Red Cell Distribution Width 13.2 % (11.6-14.8); White Blood Cell Count 14.2 X10^3/uL (4.5-11.0)
[2023-04-24 18:13] LABS: PTT Partial Thromboplastin Tim 34 SECONDS (25.1-36.5)
[2023-04-24 18:15] LABS: Alanine Aminotransferase 14 IU/L (<50); Albumin 4.6 g/dL (3.5-5.0); Albumin Globulin Ratio 1.2 (1.0-2.8); Alkaline Phosphatase 57 U/L (38-126); Aspartate Aminotransferase 22 IU/L (17-59); BUN Creatinine Ratio 16.8 (6-22); Bilirubin Total 1.7 mg/dL (0.2-1.3); Blood Urea Nitrogen 17 mg/dL (9-20); Calcium 9.7 mg/dL (8.4-10.2); Carbon Dioxide 26 mmol/L (22-32); Chloride 99 mmol/L (98-107); Estimated Glomerular Filt Rate > 60 mL/min (>60); Globulin 3.7 g/dL (1.7-4.1); Glucose 152 mg/dL (70-100); HEMOLYSIS < 15 (0-50); Potassium 3.5 mmol/L (3.4-5.1); Sodium 137 mmol/L (137-145); Total Protein 8.3 g/dL (6.3-8.2)
--- NOTE | 2023-04-24 18:31 | DI.CT.S_ITS ---
PROCEDURE: CT ABDOMEN PELVIS W CON INDICATIONS: 4 DAYS INTRACTABLE VOMITING TECHNIQUE: After the administration of intravenous contrast, axial sections acquired from the lung bases to the pubic symphysis. Coronal and sagittal reformats were performed. For radiation dose reduction, the following was used: automated exposure control, adjustment of mA and/or kV according to patient size. COMPARISON: None. FINDINGS: Image quality: Diagnostic. Lower Chest: Patchy left basilar airspace opacities. Heart size is normal. ABDOMEN: Liver: No solid mass. Gallbladder: No radiopaque gallstones or wall thickening. Biliary ducts: No biliary dilation. Pancreas: No ductal dilation. Spleen: Size is within normal limits. Adrenal Glands: No adrenal nodules. Kidneys and Ureters: No hydronephrosis. No solid mass. No complex renal cystic lesion which requires follow up. Stomach and Bowel: Normal colonic caliber, without significant wall thickening. No evidence for bowel obstruction. Normal appendix. Peritoneum: No abnormal intraperitoneal fluid. No free air. Ventral Wall: No significant ventral hernia. Abdominal Nodes: No retroperitoneal or mesenteric adenopathy by size criteria. Vessels: Aorta and inferior vena cava are normal in size. PELVIS: Pelvic Organs: Unremarkable. Bladder: No bladder wall thickening, accounting for underdistention. Pelvic Nodes: No enlarged lymph nodes. Miscellaneous: No inguinal hernias are seen. Bones: No aggressive osseous abnormality. No acute vertebral body compression fractures. Multilevel spondylitic changes throughout the imaged spine. No suspicious osseous lesions. IMPRESSION: 1. Patchy left basilar opacities which may represent atelectasis although early airspace disease/pneumonia may have a similar appearance. Recommend clinical correlation. 2. No acute abnormalities identified in the abdomen or pelvis to explain patient's abdominal pain, nausea and diarrhea. Normal appendix. No evidence for bowel obstruction. No acute inflammatory changes identified. Dictated by: Cameron Mayfield M.D. on 04/24/2023 at 20:09 Approved by: Cameron Mayfield M.D. on 04/24/2023 at 20:20
[2023-04-24] MEDS: DROPERIDOL 5 MG/2 ML VIAL 2.5 MG IV (18:44)
[2023-04-24] MEDS: ONDANSETRON 4 MG ODT PREPACK 1 BOTTLE MISC (21:00)
== END 2023-04-24 21:05 | disposition home or self-care (01) ==
PROVIDERS: Emergency Medicine; Emergency Provider Emergency Medicine; PCP Orthopaedic Surgery
DX: R11.2 Nausea with vomiting, unspecified (principal); R10.84 Generalized abdominal pain
CPT/HCPCS: 36415; 74177; 80053; 85025; 85610; 85730; 86850; 86900; 86901; 96374; 96375; 99284; C9113; J1790; J2405; Q9967

== ENCOUNTER 2023-11-12 10:56 | Emergency (ER) | payer OTHER, SELFPAY ==
[2023-11-12 11:01] VITALS: BP 107/70; PULSE 85; RESP 17; TEMP 36.5; O2SAT 96; BMI 24.3
--- NOTE | 2023-11-12 11:50 | ED_ITS ---
HPI - Dental/Oral General Chief complaint: Dental/Oral Stated complaint: Teeth pain Time Seen by Provider: 11/12/23 11:08 Source: patient Mode of arrival: Ambulatory History of Present Illness HPI Narrative: Patient complains of dental pain that started 2 days ago. Top left and bottom right. Patient has never incision drainage of any abscess. Has been on antibiotics before. He plans to call his dentist on Tuesday for appointment. Do es not smoke. No history of diabetes. No fever or chills. No cough cold congestion. No drooling no trouble swallowing no trouble breathing. Related Data Previous Rx's Medication Instructions Recorded amoxicillin 875 mg-potassium 1 tab PO Q12H dental infection #14 03/29/18 clavulanate 125 mg tablet tabs ondansetron 4 mg disintegrating 4 mg PO Q8H PRN nausea and 04/24/23 tablet vomiting #30 tabs promethazine 25 mg tablet 25 mg PO Q6H PRN nausea and 04/24/23 vomiting #14 tabs amoxicillin 875 mg-potassium 1 tab PO BID #14 tabs 11/12/23 clavulanate 125 mg tablet ibuprofen 800 mg tablet 800 mg PO Q8H PRN pain #20 tabs 11/12/23 Allergies Allergy/AdvReac Type Severity Reaction Status Date / Time No Known Drug Allergies Allergy Verified 11/12/23 11:01 Review of Systems Review of Systems Narrative: GENERAL: negative chills, fatigue, malaise, fever, sweats. HEENT: negative sinus pain, ear pain, sore throat, positive dental pain RESPIRATORY: negative dyspnea, cough CARDIOVASCULAR: negative chest pain, palpitations GASTROINTESTINAL: negative nausea, vomiting, abdominal pain : negative dysuria, frequency, hematuria MUSCULOSKELETAL: negative muscle or bony pain SKIN: negative rash, skin lesions NEUROLOGIC: negative weakness, numbness ROS Unobtainable: All systems reviewed & are unremarkable except as noted in HPI and below Patient History Medical History (Updated 11/12/23 @ 11:52 by Ted Jimenez MD) RLS (restless legs syndrome) Surgical History History of meniscectomy of right knee History of hand surgery Family History Other Family history non-contributory Social History Smoking Status: Former smoker additional social history: nonsmoker, rare EtOH, no street drugs Smoking Status: Former smoker tobacco type: vaping alcohol intake frequency: holidays/special occasions only Substance Use Type: marijuana Exam Narrative Exam Narrative: GENERAL: in no distress, not toxic not dyspneic HEAD: Normocephalic. EYES: Pupils equal round ENT: Mucous membranes moist. There is tenderness of the teeth at number 13 and number 30. No surrounding erythema edema or palpable abscess. No drooling. No facial swelling on the left or right. No swelling in the right jaw or left cheek. No trismus no malocclusion. Opens mouth wide. No tongue elevation. Airway intact. NECK: Trachea midline. CARDIOVASCULAR: Regular rate and rhythm RESPIRATORY: Clear to auscultation. Breath sounds equal bilaterally. No wheezes, rales, or rhonchi. NEURO: AOx4. Clear speech SKIN: Warm and dry PSYCH: Not anxious, is cooperative Initial Vital Signs Initial Vital Signs: Vital Signs Temperature 97.7 F 11/12/23 11:01 Pulse Rate 85 11/12/23 11:01 Respiratory Rate 17 11/12/23 11:01 Blood Pressure 107/70 11/12/23 11:01 Pulse Oximetry 96 11/12/23 11:01 Oxygen Delivery Method Room Air 11/12/23 11:01 Course Orders Ordered: Discontinued Medications Amoxicillin/Clavulanate Potassium (Amoxicillin/Clav 875/125 Mg) 1 tab PO NOW ONE Stop: 11/12/23 11:52 Last Admin: 11/12/23 12:08 Dose: 1 tab Documented By: TRANG Ibuprofen (Ibuprofen 400 Mg Tablet) 800 mg PO NOW ONE Stop: 11/12/23 11:52 Last Admin: 11/12/23 12:08 Dose: 800 mg Documented By: TRANG Vital Signs Vital signs: Vital Signs - 8 hr 11/12/23 11:01 11/12/23 12:18 Temperature 97.7 F Pulse Rate 85 88 Respiratory Rate 17 14 Blood Pressure 107/70 110/71 Pulse Oximetry 96 96 Oxygen Delivery Method Room Air Room Air MDM - Dental/Oral MDM Narrative Medical decision making narrative: Patient complains of dental pain that started 2 days ago. Top left and bottom right. Patient has never incision drainage of any abscess. Has been on antibiotics before. He plans to call his dentist on Tuesday for appointment. Does not smoke. No history of diabetes. No fever or chills. No cough cold congestion. No drooling no trouble swallowing no trouble breathing. After history and exam, no laboratory studies or imaging studies indicated this time. Exam is reassuring. Airway intact. Augmentin and ibuprofen will be ordered and prescribed. Patient has plans for calling his dentist on Tuesday. [facility] Medical records reviewed: No recent visit for this complaint Differential considered: Includes but not limited to dental abscess gingivitis dental caries tooth fracture Treatments: Augmentin ibuprofen Re-evaluations: Reviewed with patient exam findings and treatment plan. He does agree. Nontoxic at discharge. Return precautions reviewed. He is going to call his dental office on Tuesday. Not toxic at discharge he desires discharge home Discussion: Appropriate for discharge home exam is reassuring. This could be early dental abscess, I reviewed with patient. He has had antibiotics with success in the past. No incision drainage indicated this time. Exam is reassuring. He desires discharge home Diagnosis: Dental pain Discharge Plan Departure Patient Disposition: Home Clinical Impression: Toothache Instructions: DI for Dental Pain, Tooth Fracture Activity Restrictions/Additional Instructions: Please call your dentist office on Tuesday as planned to schedule appointment for follow up evaluation and treatment for your dental pain. You could be developing early abscess of the tooth/teeth. Antibiotics have been started today. 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 Return if worse if any questions or concerns. Return if any trouble swallowing or breathing. Prescriptions: New ibuprofen 800 mg tablet 800 mg PO Q8H PRN (Reason: pain) Qty: 20 0RF amoxicillin-pot clavulanate 875-125 mg tablet 1 tab PO BID Qty: 14 0RF No Action amoxicillin-pot clavulanate 875-125 mg tablet 1 tab PO Q12H Qty: 14 0RF ondansetron 4 mg tablet,disintegrating 4 mg PO Q8H PRN (Reason: nausea and vomiting) Qty: 30 0RF promethazine 25 mg tablet 25 mg PO Q6H PRN (Reason: nausea and vomiting) Qty: 14 0RF Referrals: Kristie Sloan MD [Primary Care Provider] - Stand Alone Forms: Patient Portal/API
[2023-11-12] MEDS: AMOXICILLIN/CLAV 875/125 MG 1 TAB PO (12:08)
[2023-11-12] MEDS: IBUPROFEN 400 MG TABLET 800 MG PO (12:08)
[2023-11-12 12:18] VITALS: BP 110/71; PULSE 88; RESP 14; O2SAT 96
== END 2023-11-12 12:19 | disposition home or self-care (01) ==
PROVIDERS: Emergency Provider Emergency Medicine; PCP Orthopaedic Surgery
DX: K08.89 Other specified disorders of teeth and supporting structures (principal)
CPT/HCPCS: 99283

== ENCOUNTER 2025-02-28 00:27 | Emergency (ER) | payer SELFPAY ==
--- OUTSIDE RECORDS SUMMARY | 2025-02-28 00:29 | XMS_ITS | Clinical Summary ---
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
[2025-02-28 00:47] VITALS: BP 119/78; PULSE 84; RESP 16; TEMP 36.8; O2SAT 97; BMI 24.1
[2025-02-28] MEDS: ACETAMINOPHEN 325 MG TABLET 650 MG PO (01:27)
[2025-02-28] MEDS: IBUPROFEN 600 MG TABLET PO (01:27)
[2025-02-28 02:17] VITALS: BP 111/73; PULSE 86; RESP 16; O2SAT 98
--- NOTE | 2025-02-28 02:49 | ED.DENTAL ---
HPI - Dental/Oral General Chief complaint: Dental/Oral Stated complaint: Dental Pain, Headache Time Seen by Provider: 02/28/25 00:34 Source: patient Mode of arrival: Ambulatory History of Present Illness HPI Narrative: 39-year-old man who presents to ED for sudden onset tooth pain. Past medical history significant for dental caries. Patient states that he was at a free annual dental clinic a few weeks ago and had dental work completed instead of pulling his 2nd molar from the back (tooth 31), repaired the tooth. Patient states that he was told by the dentist that there was some residual infection in the tooth however did not provide any antibiotics for it. After the dental work, he did not have any issues with his tooth, but the tooth was loose and patient believes that it should have been extracted instead. He states that he was eating pizza yesterday and bit down on the pizza incorrectly causing excruciating pain. He has not tried any medications for it. Denies any fevers, chills, nausea, vomiting. No lymphadenopathy. He does have a mild headache without any focal neurologic deficits. Related Data Previous Rx's ?Medication ?Instructions ?Recorded amoxicillin 875 mg-potassium 1 tab PO Q12H dental infection #14 03/29/18 clavulanate 125 mg tablet tabs ondansetron 4 mg disintegrating 4 mg PO Q8H PRN nausea and 04/24/23 tablet vomiting #30 tabs promethazine 25 mg tablet 25 mg PO Q6H PRN nausea and 04/24/23 vomiting #14 tabs amoxicillin 875 mg-potassium 1 tab PO BID #14 tabs 11/12/23 clavulanate 125 mg tablet ibuprofen 800 mg tablet 800 mg PO Q8H PRN pain #20 tabs 11/12/23 Allergies Allergy/AdvReac Type Severity Reaction Status Date / Time No Known Drug Allergies Allergy Verified 02/28/25 00:47 Review of Systems Review of Systems Narrative: See HPI. Patient History Medical History (Updated 02/28/25 @ 02:31 by Echo Addison MD) RLS (restless legs syndrome) Surgical History History of meniscectomy of right knee History of hand surgery Family History Other Family history non-contributory Social History additional social history: nonsmoker, rare EtOH, no street drugs tobacco type: vaping alcohol intake frequency: holidays/special occasions only Exam Narrative Exam Narrative: Vitals: Afebrile, all other vitals normal Gen: Well-developed, well-nourished, no acute distress Mouth: Moist mucous membranes, no obvious dental caries noted, tooth 31 without any tenderness to palpation along the gumline. He had tenderness when tooth is pressed down. Neck: No lymphadenopathy noted Cards: Regular, no murmurs rubs or gallops. Pulm: No increased work of breathing. Clear to auscultation. Abd: Nondistended. Neuro: A&O x4. Cranial nerves grossly intact. Moving all 4 extremities spontaneously. Psych: Appropriate. Initial Vital Signs Initial Vital Signs: Vital Signs Temperature 98.2 F 02/28/25 00:47 Pulse Rate 84 02/28/25 00:47 Respiratory Rate 16 02/28/25 00:47 Blood Pressure 119/78 02/28/25 00:47 Pulse Oximetry 97 02/28/25 00:47 Oxygen Delivery Method Room Air 02/28/25 00:47 Course Orders Ordered: Discontinued Medications Acetaminophen (Acetaminophen 325 Mg Tablet) 650 mg PO NOW ONE Stop: 02/28/25 00:55 Last Admin: 02/28/25 01:27 Dose: 650 mg Documented By: LACI Ibuprofen (Ibuprofen 400 Mg Tablet) 600 mg PO NOW ONE Stop: 02/28/25 00:54 Ibuprofen (Ibuprofen 600 Mg Tablet) 600 mg PO NOW ONE Stop: 02/28/25 01:24 Last Admin: 02/28/25 01:27 Dose: 600 mg Documented By: LACI Vital Signs Vital signs: Vital Signs - 8 hr 02/28/25 00:47 02/28/25 02:17 Temperature 98.2 F Pulse Rate 84 86 Respiratory Rate 16 16 Blood Pressure 119/78 111/73 Pulse Oximetry 97 98 Oxygen Delivery Method Room Air Room Air MDM - Dental/Oral MDM Narrative Medical decision making narrative: Patient is a 39-year-old male who recently had dental work done and had acute onset of severe pain free pizza. Differential diagnosis: Dental fracture, dental avulsion, dental abscess, less likely ulcerative gingivitis, liquids angina, peritonsillar or retropharyngeal abscess, other. Labs: None Imaging: None EKG: None Consults: None ED Course: Patient arrived to the ED hemodynamically stable. His or exam was benign aside from pain when pressing directly down on his tooth. I considered higher level of imaging to include CT maxilla to determine if there is any underlying dental abscess or periapical abscess however through shared decision making did not order imaging given that if an infection was brewing, patient would have had progressive worsening pain; however based on his HPI he had pain immediately after biting incorrectly while eating pizza. Patient was given Motrin and Tylenol and reported that his pain significantly improved. Informed patient to continue alternating these medications and to seek out definitive management by dentist. He is aware of concerning signs and symptoms that would necessitate re-evaluation in the ED by a physician. Discharge Plan Departure Patient Disposition: Home Clinical Impression: Pain, dental Instructions: DI for Dental Pain Activity Restrictions/Additional Instructions: You were seen in the emergency department for tooth pain. In the ER: - We discussed possible need for CT however given the history and etiology of your pain I do not think it is due to infection - In the ER your given Tylenol and Motrin for pain. Plan: - Take 1000 mg of Tylenol every 8 hours as needed for pain - Add 650 mg of Motrin every 6 hours as needed for pain - Return to the ER for any new or worsening symptoms to include fevers, chills, nausea, vomiting or any increasing pain. - Obtain dental appointment for complete dental exam and re-evaluation of your tooth Prescriptions: No Action amoxicillin-pot clavulanate 875-125 mg tablet 1 tab PO Q12H Qty: 14 0RF ondansetron 4 mg tablet,disintegrating 4 mg PO Q8H PRN (Reason: nausea and vomiting) Qty: 30 0RF promethazine 25 mg tablet 25 mg PO Q6H PRN (Reason: nausea and vomiting) Qty: 14 0RF ibuprofen 800 mg tablet 800 mg PO Q8H PRN (Reason: pain) Qty: 20 0RF amoxicillin-pot clavulanate 875-125 mg tablet 1 tab PO BID Qty: 14 0RF Stand Alone Forms: Patient Portal/API
== END 2025-02-28 02:45 | disposition home or self-care (01) ==
PROVIDERS: Emergency Provider Student in an Organized Health Care Education/Training Program
DX: K08.89 Other specified disorders of teeth and supporting structures (principal); R51.9 Headache, unspecified
CPT/HCPCS: 99283